=== PATIENT | female | born 1995 | race Caucasian/White ===

== ENCOUNTER 2016-12-10 10:45 | Inpatient (IN) | payer BC ==
[~2016-12-10] VITALS: Ht 162.6 cm; Wt 50.7 kg
[~2016-12-10 10:45] MED LIST: AMLO5TAB2 PO; DOXA2TAB9 PO; ERGO500017 PO
[2016-12-10] MEDS ORDERED: FOLI-17 PO (11:15)
[2016-12-10] MEDS ORDERED: CALC0.25 PO (11:15)
[2016-12-10] MEDS ORDERED: ASPIRIN 81 MG TABLET CHEW PO ONE (11:30)
[2016-12-10] MEDS ORDERED: ASPIRIN 81 MG TABLET CHEW ONE (11:43)
[2016-12-10 12:09] LABS: BLOOD UREA NITROGEN 81 mg/dL (7-18)
[2016-12-10 12:19] LABS: IS PT STATUS REG ER OR PRE ER? YES
[2016-12-10] MEDS ORDERED: SODIUM CHLORIDE FLUSH 10ML SYR IVF PRN (13:00)
[2016-12-10] MEDS ORDERED: LABETALOL 5MG/ML, 20ML IV PRN (13:00)
[2016-12-10] MEDS ORDERED: POLYETHYLENE GLYCOL 17 GM PACKET PO PRN (13:00)
[2016-12-10] MEDS ORDERED: SODIUM CHLORIDE FLUSH 10ML SYR IVF ONE (13:00)
[2016-12-10] MEDS ORDERED: ONDANSETRON 2MG/ML, 2ML IVP PRN (13:00)
[2016-12-10] MEDS ORDERED: HEPARIN 5,000 UNITS/ML, 1ML ONE (13:19)
[2016-12-10] MEDS: SODIUM CHLORIDE 0.9% 1,000 ML IV SCH ×2 (13:30→22:52)
[2016-12-10] MEDS: HEPARIN 5,000 UNITS/ML, 1ML SQ SCH ×2 (13:30→21:00)
[2016-12-10] MEDS ORDERED: ERGOCALCIFEROL 50,000 UNIT CAPSULE PO SCH (14:00)
[2016-12-10 14:18] VITALS: BP 138/96
[2016-12-10 14:22] VITALS: BP 138/96
[2016-12-10 19:59] VITALS: BP 137/79
[2016-12-11 02:00] VITALS: BP 146/89
[2016-12-11] MEDS: HEPARIN 5,000 UNITS/ML, 1ML SQ SCH ×3 (05:00→20:54)
[2016-12-11 05:51] LABS: BLOOD UREA NITROGEN 80 mg/dL (7-18)
[2016-12-11 08:00] VITALS: BP 129/81
[2016-12-11] MEDS: AMLODIPINE 5 MG TABLET PO SCH (08:30)
[2016-12-11] MEDS: FOLIC ACID 1 MG TABLET PO SCH (08:30)
[2016-12-11] MEDS: CALCITRIOL 0.25 MCG CAPSULE PO SCH (08:31)
[2016-12-11] MEDS ORDERED: LIDOCAINE 1%, 20ML ONE (10:53)
[2016-12-11] MEDS ORDERED: FENTANYL PF 100 MCG/2ML ONE (11:06)
[2016-12-11] MEDS ORDERED: MIDAZOLAM 1 MG/ML, 5ML ONE (11:06)
[2016-12-11] MEDS ORDERED: CEFAZOLIN PMX 1GM/50ML 50 ML ONE (11:15)
[2016-12-11 14:15] VITALS: BP 126/79
[2016-12-11] MEDS: ACETAMINOPHEN 325 MG TABLET PO PRN ×2 (14:18→18:40)
[2016-12-11] MEDS ORDERED: MORPHINE SULFATE 4 MG/ML, 1ML ONE ×2 (14:23→20:47)
[2016-12-11] MEDS ORDERED: MORPHINE SULFATE 4 MG/ML, 1ML IVPush ONE (14:30)
[2016-12-11 20:00] VITALS: BP 135/77
[2016-12-11] MEDS ORDERED: morphine SULFATE 10 MG/ML, 1ML IVPush ONE (21:00)
[2016-12-12 02:00] VITALS: BP 143/84
[2016-12-12 04:53] LABS: BLOOD UREA NITROGEN 53 mg/dL (7-18)
[2016-12-12] MEDS: HEPARIN 5,000 UNITS/ML, 1ML SQ SCH ×3 (05:06→21:57)
[2016-12-12 07:06] VITALS: BP 123/73
[2016-12-12] MEDS: FOLIC ACID 1 MG TABLET PO SCH (07:34)
[2016-12-12] MEDS: CALCITRIOL 0.25 MCG CAPSULE PO SCH (07:34)
[2016-12-12] MEDS: ACETAMINOPHEN 325 MG TABLET PO PRN ×2 (10:19→21:58)
[2016-12-12] MEDS: AMLODIPINE 5 MG TABLET PO SCH (11:54)
[2016-12-12 13:14] VITALS: BP 106/69
[2016-12-12] MEDS ORDERED: AMLO5TAB2 PO (13:49)
[2016-12-12] MEDS ORDERED: ERGO500017 PO (13:49)
[2016-12-12 20:00] VITALS: BP 138/83
[2016-12-13 02:00] VITALS: BP 125/83
[2016-12-13] MEDS: HEPARIN 5,000 UNITS/ML, 1ML SQ SCH ×2 (05:00→13:00)
[2016-12-13 06:56] VITALS: BP 124/82
[2016-12-13] MEDS: FOLIC ACID 1 MG TABLET PO SCH (09:00)
[2016-12-13] MEDS: AMLODIPINE 5 MG TABLET PO SCH (09:00)
[2016-12-13] MEDS: CALCITRIOL 0.25 MCG CAPSULE PO SCH (09:00)
== END 2016-12-13 15:30 | disposition home or self-care (01) | DRG 682 ==
LOC: ED 12:30 → EDIP 12:40 → 4WST 13:55 → DCLOUNGE 12-13 14:52
PROC: 02H633Z Insertion of Infusion Device into Right Atrium, Percutaneous Approach (ICD-10-PCS; 2016-12-11)
PROC: B2141ZZ Fluoroscopy of Right Heart using Low Osmolar Contrast (ICD-10-PCS; 2016-12-11)
PROC: 5A1D60Z (ICD-10-PCS; principal; 2016-12-12)
DX: I12.0 Hypertensive chronic kidney disease with stage 5 chronic kidney disease or end stage renal disease (principal); N18.6 End stage renal disease; E87.2 Acidosis; E87.70 Fluid overload, unspecified; D63.1 Anemia in chronic kidney disease; Z82.49 Family history of ischemic heart disease and other diseases of the circulatory system; E55.9 Vitamin D deficiency, unspecified; Z99.2 Dependence on renal dialysis
CPT/HCPCS: 36415; 36558; 71010; 76937; 77001; 80048; 82040; 82306; 82728; 83540; 83550; 83735; 83970; 84100; 84484; 84703; 85025; 85045; 85610; 86480; 86704; 86706; 86708; 86803; 87340; 93005; 99156; 99157; C1894; J0690; J1644; J2250; J3010; J3490; C1750; C1769; J1642; J2270; J7030

== ENCOUNTER 2017-01-11 11:52 | Emergency (ER) | payer BC ==
[~2017-01-11] VITALS: Ht 162.6 cm; Wt 50.3 kg
[~2017-01-11 11:52] MED LIST changes: +CALC0.25 PO; +FOLI-17 PO
[2017-01-11 11:59] VITALS: BP 147/95
== END 2017-01-11 13:29 | disposition left against medical advice (07) ==
LOC: ED 13:23
DX: T85.9XXA Unspecified complication of internal prosthetic device, implant and graft, initial encounter (principal); Z53.21 Procedure and treatment not carried out due to patient leaving prior to being seen by health care provider

== ENCOUNTER 2017-01-16 09:18 | Day surgery (SDC) | payer BC ==
[~2017-01-16] VITALS: Ht 162.6 cm; Wt 50.0 kg
[2017-01-16] MEDS ORDERED: PROPOFOL 10 MG/ML, 20ML ONE (10:43)
[2017-01-16] MEDS ORDERED: DEXAMETHASONE 4 MG/ML, 1ML ONE (10:43)
[2017-01-16] MEDS ORDERED: ONDANSETRON 2MG/ML, 2ML ONE (10:43)
[2017-01-16] MEDS ORDERED: CEFAZOLIN 1,000 MG ONE (10:43)
[2017-01-16 11:11] VITALS: BP 127/88
[2017-01-16] MEDS ORDERED: SODIUM CHLORIDE 0.9% 1,000 ML IV SCH (11:16)
[2017-01-16] MEDS ORDERED: CALC0.5C PO (11:18)
[2017-01-16] MEDS ORDERED: AMLO10TA2 PO (11:21)
[2017-01-16 11:34] LABS: HCG UR OBC PASS
[2017-01-16] MEDS ORDERED: FENTANYL PF 100 MCG/2ML ONE ×2 (16:25→17:36)
[2017-01-16] MEDS ORDERED: MIDAZOLAM 1 MG/ML, 2ML ONE (16:25)
[2017-01-16] MEDS ORDERED: BUPIVACAINE/PF-EPI 0.25% 1:200K ONE (16:50)
[2017-01-16] MEDS ORDERED: METOPROLOL 1 MG/ML, 5ML IV PRN (17:30)
[2017-01-16] MEDS ORDERED: ALBUTEROL SULFATE 2.5 MG/3 ML NPPB PRN (17:30)
[2017-01-16] MEDS ORDERED: OXYcodone 5 MG/5 ML ORAL.SOL UDC PO PRN (17:30)
[2017-01-16] MEDS ORDERED: ACETAMINOPHEN 325 MG TABLET PO PRN (17:30)
[2017-01-16] MEDS ORDERED: hydrALAzine 20 MG/ML, 1ML IV PRN (17:30)
[2017-01-16] MEDS ORDERED: HYDROmorphone 1 MG/ML, 1ML IV PRN (17:30)
[2017-01-16] MEDS ORDERED: OXYcodone 5 MG/5 ML ORAL.SOL UDC ONE (17:36)
[2017-01-16] MEDS: FENTANYL PF 100 MCG/2ML IV PRN ×2 (17:41→17:48)
== END 2017-01-16 19:15 | disposition home or self-care (01) ==
LOC: OUT 09:18
PROVIDERS: ATTEND Surgery Vascular Surgery
DX: I12.0 Hypertensive chronic kidney disease with stage 5 chronic kidney disease or end stage renal disease (principal); N18.6 End stage renal disease; E55.9 Vitamin D deficiency, unspecified; N25.81 Secondary hyperparathyroidism of renal origin; D63.1 Anemia in chronic kidney disease
CPT/HCPCS: 36415; 49324; 80047; 81025; C1751; J0690; J1100; J2250; J2405; J2704; J3010; J7030

== ENCOUNTER 2018-03-24 20:09 | Emergency (ER) | payer BC ==
[~2018-03-24] VITALS: Ht 160 cm; Wt 58.9 kg
[~2018-03-24 20:09] MED LIST changes: +AMLO10TA2 PO; +CALC0.5C9 PO
[2018-03-24 20:46] LABS: BASOPHILS # (AUTO) 0.22 x10^3/uL (0-0.1); BASOPHILS % (AUTO) 2 % (0-1); EOSINOPHILS # (AUTO) 0.23 x10^3/uL (0-0.4); EOSINOPHILS % (AUTO) 2 % (1-7); LYMPHOCYTES # (AUTO) 2.28 x10^3/uL (1-3.4); LYMPHOCYTES % (AUTO) 20 % (22-44); MD NO; MEAN CORPUSCULAR HEMOGLOBIN 33.1 pg (27.0-34.8); MEAN CORPUSCULAR HGB CONC 34.4 g/dL (32.4-35.8); MEAN CORPUSCULAR VOLUME 96.3 fL (80-100); MEAN PLATELET VOLUME 8.8 fL (7.4-10.4); MONOCYTES # (AUTO) 0.55 x10^3/uL (0.2-0.8); MONOCYTES % (AUTO) 5 % (2-9); NEUTROPHILS # (AUTO) 8.24 x10^3/uL (1.8-6.8); NEUTROPHILS % (AUTO) 72 % (42-75); PLATELET COUNT 199 x10^3/uL (130-400); RED BLOOD COUNT 2.75 x10^6/uL (3.82-5.3); RED CELL DISTRIBUTION WIDTH 14.1 % (9.6-15.2)
[2018-03-24 20:56] LABS: ALBUMIN 3.4 g/dL (3.4-5.0); ANION GAP 12 mmol/L (5-15); CALCIUM 8.7 mg/dL (8.5-10.1); CHLORIDE 106 mmol/L (98-107)
[2018-03-24] MEDS ORDERED: LISI-167 PO (21:35)
[2018-03-24] MEDS ORDERED: CALC0.25 PO (21:35)
[2018-03-24] MEDS ORDERED: CINA30TA2 PO (21:35)
[2018-03-24] MEDS ORDERED: SEVE800T8 PO (21:36)
[2018-03-24 22:00] VITALS: BP 131/91
== END 2018-03-24 22:49 | disposition home or self-care (01) ==
LOC: ED 22:43
DX: M25.512 Pain in left shoulder (principal); R07.89 Other chest pain; I10 Essential (primary) hypertension
CPT/HCPCS: 36415; 71046; 80048; 82040; 85025; 93005; 99285

== ENCOUNTER 2018-09-07 14:33 | Emergency (ER) | payer BC ==
[~2018-09-07] VITALS: Ht 162.6 cm; Wt 62.4 kg
[~2018-09-07 14:33] MED LIST changes: +AMLO-150 PO; -AMLO10TA2 PO; +AMLO10TA8 PO; -AMLO5TAB2 PO; +CINA30TA2 PO; +LISI-167 PO; +SEVE800T8 PO
[2018-09-07 14:58] LABS: BASOPHILS # (AUTO) 0.19 x10^3/uL (0-0.1); BASOPHILS % (AUTO) 2 % (0-1); EOSINOPHILS # (AUTO) 0.25 x10^3/uL (0-0.4); EOSINOPHILS % (AUTO) 2 % (1-7); LYMPHOCYTES # (AUTO) 2.34 x10^3/uL (1-3.4); LYMPHOCYTES % (AUTO) 23 % (22-44); MD NO; MEAN CORPUSCULAR HGB CONC 32.8 g/dL (32.4-35.8); MEAN CORPUSCULAR VOLUME 94.5 fL (80-100); MEAN PLATELET VOLUME 8.4 fL (7.4-10.4); MONOCYTES # (AUTO) 0.59 x10^3/uL (0.2-0.8); MONOCYTES % (AUTO) 6 % (2-9); NEUTROPHILS # (AUTO) 6.96 x10^3/uL (1.8-6.8); NEUTROPHILS % (AUTO) 67 % (42-75); PLATELET COUNT 256 x10^3/uL (130-400); RED BLOOD COUNT 3.47 x10^6/uL (3.82-5.3); RED CELL DISTRIBUTION WIDTH 14.7 % (9.6-15.2)
[2018-09-07 15:07] LABS: ALBUMIN 3.6 g/dL (3.4-5.0); ANION GAP 14 mmol/L (5-15); CHLORIDE 104 mmol/L (98-107)
[2018-09-07 15:11] LABS: ALKALINE PHOSPHATASE 101 U/L (45-117); BILIRUBIN,TOTAL 0.3 mg/dL (0.2-1.0); TOTAL PROTEIN 7.3 g/dL (6.4-8.2)
[2018-09-07 15:14] LABS: ALANINE AMINOTRANSFERASE 9 U/L (12-78)
--- NOTE | 2018-09-07 15:44 | NUR ---
PT OOB AMBULATE TO BATHROOM, UPRIGHT STEADY GAIT.
--- NOTE | 2018-09-07 15:52 | NUR ---
PT RTD TO ROOM FROM BATHROOM, C/O INCREASED DIZZINESS. PT TO [facility] W/O INCIDENT, VSS NOTED.
[2018-09-07 16:06] LABS: MICROSCOPIC AUTO
[2018-09-07 16:08] LABS: CULTURE INDICATED? YES
--- NOTE | 2018-09-07 16:32 | NUR ---
LUNCH RN: PROVIDER TO BEDSIDE.
[2018-09-07 17:26] VITALS: BP 134/80
--- NOTE | 2018-09-07 17:28 | NUR ---
Patient/Caregiver given discharge instructions and they have confirmed that they understand the instructions. Patient ambulatory with steady gait.
== END 2018-09-07 17:29 | disposition home or self-care (01) ==
LOC: ED 17:11
DX: N30.00 Acute cystitis without hematuria (principal); I12.9 Hypertensive chronic kidney disease with stage 1 through stage 4 chronic kidney disease, or unspecified chronic kidney disease; N18.9 Chronic kidney disease, unspecified
CPT/HCPCS: 36415; 71045; 80053; 81001; 83690; 84703; 85025; 87086; 99284

== ENCOUNTER → 2018-09-30 | Outpatient (CLI) | payer BC ==
[~2018-09-30] MED LIST changes: +ASCO1500 PO; +IRON18TA PO
[2018-09-30 13:51] LABS: BASOPHILS # (AUTO) 0.04 x10^3/uL (0-0.1); BASOPHILS % (AUTO) 1 % (0-1); EOSINOPHILS # (AUTO) 0.29 x10^3/uL (0-0.4); EOSINOPHILS % (AUTO) 4 % (1-7); LYMPHOCYTES % (AUTO) 23 % (22-44); MD NO; MEAN CORPUSCULAR HEMOGLOBIN 31.3 pg (27.0-34.8); MEAN CORPUSCULAR HGB CONC 33.5 g/dL (32.4-35.8); MEAN CORPUSCULAR VOLUME 93.5 fL (80-100); MEAN PLATELET VOLUME 8.8 fL (7.4-10.4); MONOCYTES # (AUTO) 0.44 x10^3/uL (0.2-0.8); MONOCYTES % (AUTO) 6 % (2-9); NEUTROPHILS # (AUTO) 4.63 x10^3/uL (1.8-6.8); NEUTROPHILS % (AUTO) 66 % (42-75); PLATELET COUNT 182 x10^3/uL (130-400); RED BLOOD COUNT 3.26 x10^6/uL (3.82-5.3); RED CELL DISTRIBUTION WIDTH 15.1 % (9.6-15.2)
[2018-09-30 14:05] LABS: ALANINE AMINOTRANSFERASE 12 U/L (12-78); ALBUMIN 3.6 g/dL (3.4-5.0); CALCIUM 9.1 mg/dL (8.5-10.1)
[2018-09-30 14:07] LABS: ALKALINE PHOSPHATASE 88 U/L (45-117); BILIRUBIN,TOTAL 0.5 mg/dL (0.2-1.0); TOTAL PROTEIN 6.9 g/dL (6.4-8.2)
[2018-09-30 14:25] LABS: ANION GAP 11 mmol/L (5-15); CHLORIDE 102 mmol/L (98-107)
== END | disposition home or self-care (01) ==
LOC: STAR 12:38
PROVIDERS: ATTEND Surgery
DX: Z01.818 Encounter for other preprocedural examination (principal)
CPT/HCPCS: 36415; 80053; 85025; 93005

== ENCOUNTER 2018-10-05 08:02 | Inpatient (IN) | payer BC, MEDICARE ==
[~2018-10-05] VITALS: Ht 160 cm; Wt 59.5 kg
[2018-10-05] MEDS ORDERED: SODIUM CHLORIDE 0.9% 1,000 ML IV SCH (08:25)
[2018-10-05] MEDS ORDERED: SCOPOLAMINE PATCH, 1.5MG PATCH.TD72 TD ONE (08:30)
[2018-10-05] MEDS ORDERED: ONDANSETRON ODT 8 MG PO ONE (08:30)
[2018-10-05] MEDS ORDERED: ACETAMINOPHEN 500 MG TABLET PO ONE (08:30)
[2018-10-05] MEDS ORDERED: GABAPENTIN 300 MG CAPSULE PO ONE (08:30)
[2018-10-05 08:46] VITALS: BP 126/87
[2018-10-05] MEDS ORDERED: MIDAZOLAM 1 MG/ML, 2ML ONE (09:14)
[2018-10-05] MEDS ORDERED: FENTANYL PF 250 MCG/5ML ONE (09:14)
[2018-10-05 09:18] LABS: HCG UR SG 1.014 (1.003-1.030)
[2018-10-05] MEDS ORDERED: CEFAZOLIN 1,000 MG ONE ×2 (10:23→11:09)
[2018-10-05] MEDS ORDERED: PROPOFOL 10 MG/ML, 20ML ONE (10:23)
[2018-10-05] MEDS ORDERED: LABETALOL 5MG/ML, 20ML IV PRN (10:30)
[2018-10-05] MEDS ORDERED: ONDANSETRON 2MG/ML, 2ML IV PRN ×2 (10:30→13:00)
[2018-10-05] MEDS ORDERED: PROMETHAZINE 25 MG/ML, 1ML IV PRN (10:30)
[2018-10-05] MEDS ORDERED: MIDAZOLAM 1 MG/ML, 2ML IV PRN (10:30)
[2018-10-05] MEDS ORDERED: ALBUTEROL/IPRATROPIUM 2.5MG/0.5MG, 3 ML NPPB PRN (10:30)
[2018-10-05] MEDS ORDERED: MEPERIDINE/PF 25MG/0.5ML IVPush PRN (10:30)
[2018-10-05] MEDS ORDERED: SUCCINYLCHOLINE 20 MG/ML, 10ML ONE (11:09)
[2018-10-05] MEDS ORDERED: DEXAMETHASONE 4 MG/ML, 1ML ONE (11:09)
[2018-10-05] MEDS ORDERED: ROCURONIUM 10MG/ML,5ML ONE (11:09)
[2018-10-05] MEDS ORDERED: FENTANYL PF 100 MCG/2ML ONE (11:14)
[2018-10-05] MEDS: FENTANYL PF 100 MCG/2ML IV PRN ×3 (11:16→11:37)
[2018-10-05 11:32] LABS: 10MIN %DROP IOPTH 79 %; 5MIN %DROP IOPTH 76 %; IOPTH BASELINE 2559 pg/mL
[2018-10-05] MEDS ORDERED: OXYcodone 5 MG/5 ML ORAL.SOL UDC ONE ×2 (11:38→11:56)
[2018-10-05] MEDS: OXYcodone 5 MG/5 ML ORAL.SOL UDC PO PRN ×2 (11:39→11:56)
[2018-10-05] MEDS ORDERED: HYDROmorphone 1 MG/ML, 1ML INJ ONE (11:45)
[2018-10-05] MEDS: HYDROmorphone 2 MG/ML, 1ML IVPush PRN ×2 (11:47→12:03)
[2018-10-05] MEDS ORDERED: morphine SULFATE 10 MG/ML, 1ML IV PRN (13:00)
[2018-10-05] MEDS ORDERED: HYDROcodone/APAP 5/325 TABLET PO PRN (13:00)
[2018-10-05 16:18] VITALS: BP 119/84
[2018-10-05] MEDS ORDERED: CALCIUM CARBONATE 500 MG TAB.CHEW PO SCH (17:00)
[2018-10-05 17:59] LABS: ALBUMIN 3.3 g/dL (3.4-5.0); CALCIUM 7.9 mg/dL (8.5-10.1)
[2018-10-05 20:30] VITALS: BP 124/73
[2018-10-05] MEDS ORDERED: CALCITRIOL 0.5 MCG CAPSULE PO ONE (22:00)
[2018-10-05] MEDS ORDERED: CALCIUM CARBONATE 500 MG TAB.CHEW PO/NG ONE (22:00)
[2018-10-06 00:25] VITALS: BP 104/64
[2018-10-06 00:58] LABS: CALCIUM 7.4 mg/dL (8.5-10.1)
[2018-10-06] MEDS: CALCIUM CARBONATE 500 MG TAB.CHEW PO SCH ×3 (02:21→11:08)
[2018-10-06] MEDS ORDERED: CALCIUM CARBONATE 500 MG TAB.CHEW PO SCH (04:00)
[2018-10-06 04:18] VITALS: BP 104/72
[2018-10-06 06:27] LABS: CALCIUM 7.5 mg/dL (8.5-10.1)
[2018-10-06] MEDS ORDERED: AMLODIPINE 5 MG TABLET PO SCH (09:00)
[2018-10-06] MEDS ORDERED: ASCORBIC ACID 500 MG TABLET PO SCH (09:00)
[2018-10-06] MEDS ORDERED: FERROUS SULFATE 325 MG TABLET PO SCH (09:00)
[2018-10-06] MEDS ORDERED: LISINOPRIL 20 MG TABLET PO SCH (09:00)
[2018-10-06] MEDS ORDERED: SEVELAMER CARBONATE 800MG TAB PO SCH (09:00)
[2018-10-06] MEDS ORDERED: HYDR-3240 PO (09:43)
[2018-10-06] MEDS ORDERED: CALC1POW PO (09:45)
[2018-10-06] MEDS ORDERED: CALC0.25 PO (09:45)
[2018-10-06 11:00] VITALS: BP 97/62
[2018-10-06] MEDS: CALCITRIOL 0.5 MCG CAPSULE PO SCH ×2 (11:08→11:18)
[2018-10-06] MEDS ORDERED: CALCIUM CARBONATE 500 MG TAB.CHEW PO PRN (11:30)
[2018-10-06] MEDS ORDERED: CALCITRIOL 0.5 MCG CAPSULE PO SCH (11:30)
== END 2018-10-06 11:42 | disposition home or self-care (01) | DRG 625 ==
LOC: OUT 08:02 → EDSTATUS 11:00 → OUT 12:37 → 4NOR 12:37 → 4EST 12:46 → UNDOADMIN 23:41 → 4NOR 23:41 → OUT 23:41 → 4NOR 23:41 → DCLOUNGE 10-06 11:28 → 4NOR 10-06 11:28 → UNDODISIN 10-06 11:40 → OUT 10-06 11:42
PROVIDERS: ADMIT Surgery; ATTEND Surgery
PROC: 0GBL0ZZ Excision of Right Superior Parathyroid Gland, Open Approach (ICD-10-PCS; 2018-10-05)
PROC: 0GBM0ZZ Excision of Left Superior Parathyroid Gland, Open Approach (ICD-10-PCS; 2018-10-05)
PROC: 0GBN0ZZ Excision of Right Inferior Parathyroid Gland, Open Approach (ICD-10-PCS; 2018-10-05)
PROC: 4A11X4G Monitoring of Peripheral Nervous Electrical Activity, Intraoperative, External Approach (ICD-10-PCS; 2018-10-05)
PROC: 03HY32Z Insertion of Monitoring Device into Upper Artery, Percutaneous Approach (ICD-10-PCS; 2018-10-05)
PROC: 0GBP0ZZ Excision of Left Inferior Parathyroid Gland, Open Approach (ICD-10-PCS; principal; 2018-10-05 10:30)
DX: E21.0 Primary hyperparathyroidism (principal); N18.6 End stage renal disease; N25.81 Secondary hyperparathyroidism of renal origin; I12.0 Hypertensive chronic kidney disease with stage 5 chronic kidney disease or end stage renal disease; D63.1 Anemia in chronic kidney disease; N25.0 Renal osteodystrophy; J44.9 Chronic obstructive pulmonary disease, unspecified; Z83.3 Family history of diabetes mellitus; Z88.6 Allergy status to analgesic agent
CPT/HCPCS: 36415; 80047; 81025; 82040; 82310; 83970; 88305; G0378; J0690; J1100; J1170; J2250; J2704; J3010; Q0162; C1760; J0330; J7030

== ENCOUNTER 2018-10-12 20:06 | Inpatient (IN) | payer BC, MEDICARE ==
[~2018-10-12] VITALS: Ht 160 cm; Wt 60.4 kg
[~2018-10-12 20:06] MED LIST changes: +CALC1POW PO; +HYDR-3240 PO
[2018-10-12] MEDS ORDERED: SODIUM CHLORIDE FLUSH 10ML SYR IVF ONE (20:30)
--- NOTE | 2018-10-12 20:32 | NUR ---
PT PRESENTING TO ER FOR LOW CALCIUM LEVELS PER TOLD THEY WERE 6.7. PT STATES FEELING SLOW, WEAK ALL OVER AND SLIGHTLY TWITCHY WITH JAW NUMBNESS. CONNECTED TO ALL MONITORING, TACHY HR. MD TO BEDSIDE FOR ASSESSMENT. ORDERS RECEIVED. IV STARTED, LABS DRAWN AND TAKEN TO LAB. FAMILY AT BEDSIDE. CALL LIGHT WITHIN REACH. AWAITING RESULTS AT THIS TIME. ALL NEEDS MET PER PT.
[2018-10-12 20:52] LABS: BASOPHILS # (AUTO) 0.02 x10^3/uL (0-0.1); BASOPHILS % (AUTO) 0 % (0-1); EOSINOPHILS # (AUTO) 0.34 x10^3/uL (0-0.4); EOSINOPHILS % (AUTO) 5 % (1-7); LYMPHOCYTES # (AUTO) 1.54 x10^3/uL (1-3.4); LYMPHOCYTES % (AUTO) 22 % (22-44); MD NO; MEAN CORPUSCULAR HEMOGLOBIN 31.3 pg (27.0-34.8); MEAN CORPUSCULAR HGB CONC 33.8 g/dL (32.4-35.8); MEAN CORPUSCULAR VOLUME 92.6 fL (80-100); MEAN PLATELET VOLUME 8.4 fL (7.4-10.4); MONOCYTES # (AUTO) 0.63 x10^3/uL (0.2-0.8); MONOCYTES % (AUTO) 9 % (2-9); NEUTROPHILS # (AUTO) 4.37 x10^3/uL (1.8-6.8); NEUTROPHILS % (AUTO) 63 % (42-75); PLATELET COUNT 235 x10^3/uL (130-400); RED BLOOD COUNT 2.82 x10^6/uL (3.82-5.3); RED CELL DISTRIBUTION WIDTH 14.9 % (9.6-15.2)
[2018-10-12 20:56] LABS: ALBUMIN 3.2 g/dL (3.4-5.0); ANION GAP 14 mmol/L (5-15); CHLORIDE 102 mmol/L (98-107)
[2018-10-12 20:58] LABS: ALKALINE PHOSPHATASE 181 U/L (45-117); BILIRUBIN,TOTAL 0.3 mg/dL (0.2-1.0); TOTAL PROTEIN 6.8 g/dL (6.4-8.2)
[2018-10-12 20:59] LABS: ALANINE AMINOTRANSFERASE < 6 U/L (12-78)
[2018-10-12 21:00] LABS: CALCIUM 5.3 mg/dL (8.5-10.1)
--- NOTE | 2018-10-12 21:05 | NUR ---
CRIT CALCIUM RECEIVED FROM MD STEPHANIE UPDATED, VERBAL ORDERS RECEIVED FOR MEDS.
[2018-10-12] MEDS ORDERED: CALCIUM GLUCONATE 9.2 MEQ in SODIUM CHLORIDE 0.9% 100 ML IV ONE (21:30)
--- NOTE | 2018-10-12 21:30 | NUR ---
DRIP RECEIVED FROM PHARM, STARTED. PT TO BE ADMITTED TO [facility]. FAMILY TO GO HOME TO GET PT PERITONEAL DIALYSIS MACHINE. VSS. BLANKET PROVIDED FOR COMFORT. AWAITING ROOM ASSIGNMENT ON FLOOR. CALL LIGHT WITHIN REACH
--- NOTE | 2018-10-12 22:02 | NUR ---
REPORT GIVEN TO SACHA DELACRUZ, PT READY FOR TRANSPORT TO FLOOR.
[2018-10-12 22:24] VITALS: BP 126/88
[2018-10-12] MEDS ORDERED: LABETALOL 5 MG/ML SYRINGE IVPush PRN (22:30)
[2018-10-12] MEDS ORDERED: POLYETHYLENE GLYCOL 17 GM PACKET PO PRN (22:30)
[2018-10-12] MEDS ORDERED: morphine SULFATE 10 MG/ML, 1ML IVPush PRN (22:30)
[2018-10-12] MEDS ORDERED: ONDANSETRON ODT 4 MG PO PRN (22:30)
[2018-10-12] MEDS ORDERED: GABAPENTIN 300 MG CAPSULE PO PRN (22:30)
[2018-10-12] MEDS ORDERED: BISACODYL 10 MG SUPP PR PRN (22:30)
[2018-10-12] MEDS ORDERED: DOCUSATE 100 MG CAPSULE PO PRN (22:30)
[2018-10-12] MEDS ORDERED: ACETAMINOPHEN 325 MG TABLET PO PRN (22:30)
[2018-10-12] MEDS ORDERED: PROMETHAZINE 25 MG/ML, 1ML IM PRN (22:30)
[2018-10-12] MEDS ORDERED: OXYcodone IR 5MG TABLET PO PRN (22:30)
[2018-10-12] MEDS ORDERED: ONDANSETRON 2MG/ML, 2ML IVPush PRN (22:30)
[2018-10-12] MEDS ORDERED: CALCIUM GLUCONATE IV SCH (23:00)
[2018-10-12] MEDS ORDERED: ERGOCALCIFEROL 50,000 UNIT CAPSULE PO SCH (23:00)
[2018-10-12] MEDS ORDERED: CALCIUM CARBONATE PO SCH (23:00)
[2018-10-12] MEDS ORDERED: CALCITRIOL PO SCH (23:00)
[2018-10-12] MEDS ORDERED: DEXTROSE 5% IV SCH (23:00)
[2018-10-12] MEDS: HEPARIN 5,000 UNITS/ML, 1ML SQ SCH (23:19)
[2018-10-12 23:36] LABS: FREE T4 (FREE THYROXINE) 1.89 ng/dL (0.76-1.46); THYROID STIMULATING HORMONE 0.022 mIU/L (0.358-3.740)
[2018-10-13] MEDS: CALCIUM CARBONATE 500 MG TAB.CHEW PO SCH ×6 (00:11→20:19)
[2018-10-13 01:06] VITALS: BP 130/78
[2018-10-13 05:35] LABS: BASOPHILS # (AUTO) 0.04 x10^3/uL (0-0.1); BASOPHILS % (AUTO) 1 % (0-1); EOSINOPHILS # (AUTO) 0.33 x10^3/uL (0-0.4); EOSINOPHILS % (AUTO) 6 % (1-7); LYMPHOCYTES # (AUTO) 1.86 x10^3/uL (1-3.4); LYMPHOCYTES % (AUTO) 33 % (22-44); MD NO; MEAN CORPUSCULAR HEMOGLOBIN 31.5 pg (27.0-34.8); MEAN CORPUSCULAR HGB CONC 34.1 g/dL (32.4-35.8); MEAN CORPUSCULAR VOLUME 92.4 fL (80-100); MEAN PLATELET VOLUME 8.1 fL (7.4-10.4); MONOCYTES # (AUTO) 0.58 x10^3/uL (0.2-0.8); MONOCYTES % (AUTO) 10 % (2-9); NEUTROPHILS % (AUTO) 51 % (42-75); PLATELET COUNT 200 x10^3/uL (130-400); RED BLOOD COUNT 2.63 x10^6/uL (3.82-5.3); RED CELL DISTRIBUTION WIDTH 14.9 % (9.6-15.2)
[2018-10-13 06:04] LABS: CHLORIDE 101 mmol/L (98-107)
[2018-10-13 06:13] LABS: ALANINE AMINOTRANSFERASE 9 U/L (12-78); ALBUMIN 2.9 g/dL (3.4-5.0); ALKALINE PHOSPHATASE 166 U/L (45-117); ANION GAP 14 mmol/L (5-15); BILIRUBIN,TOTAL 0.4 mg/dL (0.2-1.0); CALCIUM 7.2 mg/dL (8.5-10.1); CHOL/HDL RATIO 3.5; CHOLESTEROL, TOTAL 111 mg/dL (140-239); HDL CHOL % 29 % (28-40); HDL CHOLESTEROL (DIRECT) 32 mg/dL (40-60); LDL CHOLESTEROL,CALCULATED 59 mg/dL (54-169); LDL/HDL RATIO 1.8 (0.5-3.0); TOTAL PROTEIN 6.4 g/dL (6.4-8.2); TRIGLYCERIDES 100 mg/dL (50-200); VLDL CHOLESTEROL 20 mg/dL (0-25)
[2018-10-13] MEDS: HEPARIN 5,000 UNITS/ML, 1ML SQ SCH ×3 (06:42→15:41)
[2018-10-13 07:48] VITALS: BP 117/78
[2018-10-13] MEDS: LISINOPRIL 10 MG TABLET PO SCH (08:27)
[2018-10-13] MEDS: ASCORBIC ACID 500 MG TABLET PO SCH (08:27)
[2018-10-13] MEDS: CALCIUM ACETATE 667 MG CAPSULE PO SCH ×3 (08:27→15:34)
[2018-10-13] MEDS: AMLODIPINE 10 MG TAB PO SCH (08:28)
[2018-10-13] MEDS: FERROUS SULFATE 325 MG TABLET PO SCH (08:28)
[2018-10-13] MEDS: CALCITRIOL 0.5 MCG CAPSULE PO SCH ×2 (08:28→20:19)
[2018-10-13] MEDS ORDERED: SEVELAMER CARBONATE 800MG TAB PO SCH (09:00)
[2018-10-13] MEDS ORDERED: ARANESP 100 MCG/ML **ESRD SQ SCH (10:30)
[2018-10-13 14:21] VITALS: BP 120/74
[2018-10-13 19:41] VITALS: BP 102/62
[2018-10-13] MEDS: GENTAMICIN CRM 0.1%, 30GM TP SCH (20:20)
[2018-10-14] MEDS: CALCIUM CARBONATE 500 MG TAB.CHEW PO SCH ×6 (00:02→21:00)
[2018-10-14] MEDS: HEPARIN 5,000 UNITS/ML, 1ML SQ SCH ×3 (00:02→16:01)
[2018-10-14 02:30] VITALS: BP 98/66
[2018-10-14 07:58] VITALS: BP 95/63
[2018-10-14] MEDS: FERROUS SULFATE 325 MG TABLET PO SCH (08:19)
[2018-10-14] MEDS: LISINOPRIL 10 MG TABLET PO SCH (08:20)
[2018-10-14] MEDS: CALCIUM ACETATE 667 MG CAPSULE PO SCH ×4 (08:20→16:34)
[2018-10-14] MEDS: CALCITRIOL 0.5 MCG CAPSULE PO SCH ×2 (08:20→21:00)
[2018-10-14] MEDS: ASCORBIC ACID 500 MG TABLET PO SCH (08:20)
[2018-10-14] MEDS: AMLODIPINE 10 MG TAB PO SCH (08:21)
[2018-10-14] MEDS: DEXTROSE 5% IV SCH (10:00)
[2018-10-14] MEDS: CALCIUM GLUCONATE IV SCH (10:00)
[2018-10-14 10:15] LABS: BASOPHILS % (AUTO) 2 % (0-1); EOSINOPHILS # (AUTO) 0.22 x10^3/uL (0-0.4); EOSINOPHILS % (AUTO) 4 % (1-7); LYMPHOCYTES # (AUTO) 1.28 x10^3/uL (1-3.4); LYMPHOCYTES % (AUTO) 23 % (22-44); MD NO; MEAN CORPUSCULAR HEMOGLOBIN 30.7 pg (27.0-34.8); MEAN CORPUSCULAR HGB CONC 33.1 g/dL (32.4-35.8); MEAN CORPUSCULAR VOLUME 92.5 fL (80-100); MEAN PLATELET VOLUME 8.2 fL (7.4-10.4); MONOCYTES # (AUTO) 0.39 x10^3/uL (0.2-0.8); MONOCYTES % (AUTO) 7 % (2-9); NEUTROPHILS # (AUTO) 3.69 x10^3/uL (1.8-6.8); NEUTROPHILS % (AUTO) 65 % (42-75); PLATELET COUNT 229 x10^3/uL (130-400); RED CELL DISTRIBUTION WIDTH 14.9 % (9.6-15.2)
[2018-10-14 10:24] LABS: ANION GAP 11 mmol/L (5-15); CHLORIDE 96 mmol/L (98-107)
[2018-10-14 13:21] VITALS: BP 98/68
[2018-10-14 20:29] VITALS: BP 130/81
[2018-10-14] MEDS: GENTAMICIN CRM 0.1%, 30GM TP SCH (21:00)
[2018-10-15] MEDS: HEPARIN 5,000 UNITS/ML, 1ML SQ SCH ×3 (00:19→16:00)
[2018-10-15] MEDS: CALCIUM CARBONATE 500 MG TAB.CHEW PO SCH ×5 (00:19→16:08)
[2018-10-15 04:21] VITALS: BP 117/69
[2018-10-15 07:00] VITALS: BP 106/70
[2018-10-15] MEDS: CALCIUM GLUCONATE IV SCH (08:06)
[2018-10-15] MEDS: DEXTROSE 5% IV SCH (08:06)
[2018-10-15] MEDS: ASCORBIC ACID 500 MG TABLET PO SCH (08:07)
[2018-10-15] MEDS: FERROUS SULFATE 325 MG TABLET PO SCH (08:07)
[2018-10-15] MEDS: CALCIUM ACETATE 667 MG CAPSULE PO SCH ×2 (08:07→12:16)
[2018-10-15] MEDS: CALCITRIOL 0.5 MCG CAPSULE PO SCH (08:07)
[2018-10-15] MEDS: AMLODIPINE 10 MG TAB PO SCH (08:08)
[2018-10-15] MEDS: LISINOPRIL 10 MG TABLET PO SCH (08:08)
[2018-10-15] MEDS ORDERED: CALCIUM GLUCONATE IV SCH (09:00)
[2018-10-15] MEDS ORDERED: DEXTROSE 5% IV SCH (09:00)
[2018-10-15 14:36] VITALS: BP 127/69
[2018-10-15] MEDS ORDERED: GENT15CR6 TP (15:55)
[2018-10-15] MEDS ORDERED: CALC667C PO (15:55)
== END 2018-10-15 16:44 | disposition home or self-care (01) | DRG 640 ==
LOC: ED 20:43 → EDIP 21:33 → 4EST 22:16
PROVIDERS: ADMIT Internal Medicine; ATTEND Internal Medicine
PROC: 3E1M39Z Irrigation of Peritoneal Cavity using Dialysate, Percutaneous Approach (ICD-10-PCS; principal; 2018-10-12)
PROC: 3E1M39Z Irrigation of Peritoneal Cavity using Dialysate, Percutaneous Approach (ICD-10-PCS; 2018-10-13)
PROC: 3E1M39Z Irrigation of Peritoneal Cavity using Dialysate, Percutaneous Approach (ICD-10-PCS; 2018-10-14)
DX: E83.51 Hypocalcemia (principal); N18.6 End stage renal disease; I12.0 Hypertensive chronic kidney disease with stage 5 chronic kidney disease or end stage renal disease; E44.1 Mild protein-calorie malnutrition; N25.81 Secondary hyperparathyroidism of renal origin; D63.1 Anemia in chronic kidney disease; E83.81 Hungry bone syndrome; N25.0 Renal osteodystrophy; Z83.3 Family history of diabetes mellitus; Z99.2 Dependence on renal dialysis; Z88.8 Allergy status to other drugs, medicaments and biological substances; Z79.899 Other long term (current) drug therapy; Z68.20 Body mass index [BMI] 20.0-20.9, adult
CPT/HCPCS: 36415; 80048; 80053; 80061; 82330; 83735; 84100; 84439; 84443; 85025; 93005; 96374; 99285; G0378; J0610; J0882; J1644; J7070

== ENCOUNTER → 2019-07-12 | Outpatient (CLI) | payer BC ==
[~2019-07-12] MED LIST changes: +CALC667C PO; +GENT15CR6 TP
== END | disposition home or self-care (01) ==
LOC: CFH 08:37
PROVIDERS: ATTEND Nurse Practitioner
DX: N26.1 Atrophy of kidney (terminal) (principal); R10.9 Unspecified abdominal pain; N18.6 End stage renal disease; M54.9 Dorsalgia, unspecified
CPT/HCPCS: 74176

== ENCOUNTER 2019-07-14 10:50 | Emergency (ER) | payer BC ==
[~2019-07-14] VITALS: Ht 162.6 cm; Wt 60.9 kg
--- NOTE | 2019-07-14 11:16 | NUR ---
PT STATES WAS SENT OVER HERE FROM HER MD OFFICE AFTER HAVING A CT SCAN OF HER ABDOMEN, HE MD TOLD HER THAT THE RESULTS WERE "ABNORMAL". PT DOES HAVE C/O ABD PAIN RLQ, AND NAUSEA. -V/D
--- NOTE | 2019-07-14 11:34 | NUR ---
TASK RN: PT RESTING ON GURNEY. NADN. DOMINGUEZ.
[2019-07-14 11:49] LABS: CULTURE INDICATED? YES; MICROSCOPIC INDICATED
[2019-07-14 11:56] LABS: BASOPHILS # (AUTO) 0.04 x10^3/uL (0-0.1); BASOPHILS % (AUTO) 1 % (0-1); EOSINOPHILS # (AUTO) 0.33 x10^3/uL (0-0.4); EOSINOPHILS % (AUTO) 4 % (1-7); LYMPHOCYTES # (AUTO) 1.63 x10^3/uL (1-3.4); LYMPHOCYTES % (AUTO) 20 % (22-44); MD NO; MEAN CORPUSCULAR HEMOGLOBIN 32.2 pg (27.0-34.8); MEAN CORPUSCULAR HGB CONC 32.3 g/dL (32.4-35.8); MEAN CORPUSCULAR VOLUME 99.9 fL (80-100); MEAN PLATELET VOLUME 8.1 fL (7.4-10.4); MONOCYTES # (AUTO) 0.38 x10^3/uL (0.2-0.8); MONOCYTES % (AUTO) 5 % (2-9); NEUTROPHILS # (AUTO) 5.93 x10^3/uL (1.8-6.8); NEUTROPHILS % (AUTO) 71 % (42-75); PLATELET COUNT 291 x10^3/uL (130-400); RED BLOOD COUNT 3.13 x10^6/uL (3.82-5.3); RED CELL DISTRIBUTION WIDTH 17.5 % (9.6-15.2)
--- NOTE | 2019-07-14 11:59 | NUR ---
Note maria del carmen in EDM - 07/14/19 at 1159 by BNICHOLS TASK RN: PT REPOSITIONED FOR COMFORT. RESTING ON GURNEY. NADN. ALL QUESTIONS ANSWERED. PT AND FAMILY AWARE OF POC.
[2019-07-14 12:08] LABS: ALBUMIN 3.7 g/dL (3.4-5.0); ANION GAP 14 mmol/L (5-15); CALCIUM 8.5 mg/dL (8.5-10.1); CHLORIDE 99 mmol/L (98-107)
[2019-07-14 12:12] LABS: ALANINE AMINOTRANSFERASE 17 U/L (12-78); ALKALINE PHOSPHATASE 48 U/L (45-117); BILIRUBIN,TOTAL 0.4 mg/dL (0.2-1.0); C-REACTIVE PROTEIN, QUANT 0.31 mg/dL (0.02-0.49); TOTAL PROTEIN 7.4 g/dL (6.4-8.2)
[2019-07-14 12:36] VITALS: BP 132/90
--- NOTE | 2019-07-14 12:43 | NUR ---
PT RESTING ON TESHA, NAD NOTED, VSS. PT PLACED FOR RECHECK
[2019-07-14] MEDS ORDERED: CEFTRIAXONE 1,000 MG IM ONE (13:30)
[2019-07-14] MEDS ORDERED: CEFTRIAXONE 1,000 MG ONE (13:41)
[2019-07-14] MEDS ORDERED: LIDOCAINE-MPF 1%, 2ML ONE (13:41)
== END 2019-07-14 13:54 | disposition home or self-care (01) ==
LOC: ED 13:53
DX: I12.0 Hypertensive chronic kidney disease with stage 5 chronic kidney disease or end stage renal disease (principal); N30.00 Acute cystitis without hematuria; N18.6 End stage renal disease; Z99.2 Dependence on renal dialysis; Z90.89 Acquired absence of other organs
CPT/HCPCS: 36415; 80053; 81001; 83605; 85025; 86140; 87040; 87086; 96372; 99283; J0696

== ENCOUNTER 2019-11-02 15:51 | Emergency (ER) | payer BC ==
[~2019-11-02] VITALS: Ht 160 cm; Wt 61.4 kg
[2019-11-02 16:32] VITALS: BP 140/99
--- NOTE | 2019-11-02 19:19 | NUR ---
DEVELOPMENT ENG: CALLED FOR PT. PT NOT IN LOBBY.
--- NOTE | 2019-11-02 19:54 | NUR ---
FURNACE TENDER: CALLED FOR PT. PT NOT IN LOBBY OR RESTROOMS.
--- NOTE | 2019-11-02 20:05 | NUR ---
DEVOPS DEVELOPER: CALLED FOR PT. PT NOT IN LOBBY.
== END 2019-11-02 20:09 | disposition left against medical advice (07) ==
LOC: ED 20:00
DX: M79.601 Pain in right arm (principal); Z53.21 Procedure and treatment not carried out due to patient leaving prior to being seen by health care provider

== ENCOUNTER 2019-11-02 21:14 | Emergency (ER) | payer BC ==
[~2019-11-02] VITALS: Ht 160 cm; Wt 62.1 kg
--- NOTE | 2019-11-02 22:41 | NUR ---
ASSUMED CARE OF PATIENT. PATIENT REPORTS SHE RECENTLY HAD A DIALYSIS CATHETER PLACED IN HER RIGHT CHEST. SINCE THEN SHE HAS HAD SOB, AND RIGHT ARM PAIN. VS STABLE. CALL LIGHT IN PLACE. WILL CONTINUE TO MONITOR.
[2019-11-02 23:16] LABS: BASOPHILS # (AUTO) 0.21 x10^3/uL (0-0.1); BASOPHILS % (AUTO) 2 % (0-1); EOSINOPHILS # (AUTO) 0.52 x10^3/uL (0-0.4); EOSINOPHILS % (AUTO) 6 % (1-7); LYMPHOCYTES # (AUTO) 1.96 x10^3/uL (1-3.4); LYMPHOCYTES % (AUTO) 22 % (22-44); MD NO; MEAN CORPUSCULAR HEMOGLOBIN 32.4 pg (27.0-34.8); MEAN CORPUSCULAR HGB CONC 32.6 g/dL (32.4-35.8); MEAN CORPUSCULAR VOLUME 99.4 fL (80-100); MEAN PLATELET VOLUME 7.5 fL (7.4-10.4); MONOCYTES # (AUTO) 0.57 x10^3/uL (0.2-0.8); MONOCYTES % (AUTO) 7 % (2-9); NEUTROPHILS # (AUTO) 5.58 x10^3/uL (1.8-6.8); NEUTROPHILS % (AUTO) 63 % (42-75); PLATELET COUNT 251 x10^3/uL (130-400); RED BLOOD COUNT 3.28 x10^6/uL (3.82-5.3); RED CELL DISTRIBUTION WIDTH 16.6 % (9.6-15.2)
[2019-11-02 23:28] LABS: ALBUMIN 3.1 g/dL (3.4-5.0); ANION GAP 9 mmol/L (5-15); CALCIUM 8.7 mg/dL (8.5-10.1); CHLORIDE 100 mmol/L (98-107)
--- NOTE | 2019-11-02 23:37 | NUR ---
PT IN US
[2019-11-03 00:42] VITALS: BP 113/75
--- NOTE | 2019-11-03 00:42 | NUR ---
PT DISCHARGED PER DR GREY
== END 2019-11-03 00:47 | disposition home or self-care (01) ==
LOC: ED 22:14
DX: R07.89 Other chest pain (principal); I12.0 Hypertensive chronic kidney disease with stage 5 chronic kidney disease or end stage renal disease; N18.6 End stage renal disease; M79.601 Pain in right arm; Z90.89 Acquired absence of other organs
CPT/HCPCS: 36415; 71045; 80048; 82040; 85025; 93005; 99285

== ENCOUNTER → 2020-07-05 | Outpatient (CLI) | payer BC ==
[~2020-07-05] MED LIST changes: +AMLO-211 PO; -AMLO10TA8 PO
== END | disposition home or self-care (01) ==
LOC: CVU 14:17
PROVIDERS: ATTEND Nurse Practitioner Gerontology
DX: I08.8 Other rheumatic multiple valve diseases (principal); I12.0 Hypertensive chronic kidney disease with stage 5 chronic kidney disease or end stage renal disease; N18.6 End stage renal disease; R10.9 Unspecified abdominal pain; M54.9 Dorsalgia, unspecified; D63.1 Anemia in chronic kidney disease; N25.81 Secondary hyperparathyroidism of renal origin; Z87.448 Personal history of other diseases of urinary system; Z99.2 Dependence on renal dialysis
CPT/HCPCS: 93306; 93356

== ENCOUNTER → 2020-10-25 | Outpatient (CLI) | payer BC ==
[~2020-10-25] MED LIST changes: -FOLI-17 PO; +FOLI1TAB32 PO; +HYDR-1067 PO; -HYDR-3240 PO
== END | disposition home or self-care (01) ==
LOC: CFH 13:25
PROVIDERS: ATTEND Nurse Practitioner
DX: N26.1 Atrophy of kidney (terminal) (principal); D63.1 Anemia in chronic kidney disease; N25.81 Secondary hyperparathyroidism of renal origin; N18.6 End stage renal disease; Z99.2 Dependence on renal dialysis; Z87.448 Personal history of other diseases of urinary system
CPT/HCPCS: 74176

== ENCOUNTER → 2021-01-19 | Outpatient (CLI) | payer BC ==
[~2021-01-19] MED LIST changes: -HYDR-1067 PO; +HYDR-2214 PO
== END | disposition home or self-care (01) ==
LOC: CFH 09:06
PROVIDERS: ATTEND Nurse Practitioner Gerontology
DX: I12.9 Hypertensive chronic kidney disease with stage 1 through stage 4 chronic kidney disease, or unspecified chronic kidney disease (principal); R10.9 Unspecified abdominal pain; N18.6 End stage renal disease; D63.1 Anemia in chronic kidney disease; N25.81 Secondary hyperparathyroidism of renal origin; M54.9 Dorsalgia, unspecified; Z87.448 Personal history of other diseases of urinary system; Z99.2 Dependence on renal dialysis
CPT/HCPCS: 71046

== ENCOUNTER 2021-02-10 22:22 | Emergency (ER) | payer BC, MEDICARE ==
[~2021-02-10] VITALS: Ht 162.6 cm; Wt 64.5 kg
--- NOTE | 2021-02-10 22:38 | NUR ---
pt present to the ed with low blood pressure after dialysis. pt states her blood pressure goes up and down frequently and she just wants to make sure it's okay. pt in gown, resting on gurney, and placed on continuous monitoring.
[2021-02-10 23:18] VITALS: BP 109/56
--- NOTE | 2021-02-10 23:18 | NUR ---
pt resting on gurney, denies needs at this time.
--- NOTE | 2021-02-10 23:32 | NUR ---
Patient given discharge instructions and they have confirmed that they understand the instructions. Patient ambulatory with steady gait.
== END 2021-02-10 23:34 | disposition home or self-care (01) ==
LOC: ED 23:00
DX: I95.81 Postprocedural hypotension (principal); R42 Dizziness and giddiness; R53.1 Weakness; R51.9 Headache, unspecified; I12.0 Hypertensive chronic kidney disease with stage 5 chronic kidney disease or end stage renal disease; N18.6 End stage renal disease; E11.22 Type 2 diabetes mellitus with diabetic chronic kidney disease
CPT/HCPCS: 99281

== ENCOUNTER 2021-04-01 10:06 | Emergency (ER) | payer BC, MEDICARE ==
--- NOTE | 2021-04-01 10:49 | NUR ---
NO ANSWER FROM TRIAGE
--- NOTE | 2021-04-01 11:06 | NUR ---
NO ANSWER FROM TRIAGE
--- NOTE | 2021-04-01 11:10 | NUR ---
NO ANSWER FROM TRIAGE
== END 2021-04-01 11:16 | disposition left against medical advice (07) ==
LOC: ED 11:10
DX: I95.9 Hypotension, unspecified (principal); Z53.21 Procedure and treatment not carried out due to patient leaving prior to being seen by health care provider

== ENCOUNTER 2021-04-03 15:11 | Emergency (ER) | payer BC, MEDICARE ==
[~2021-04-03] VITALS: Ht 160 cm; Wt 61.0 kg
[2021-04-03 15:32] VITALS: BP 110/72
--- NOTE | 2021-04-03 18:09 | NUR ---
no answer andreas called for room placement at [id number] and [id number]
--- NOTE | 2021-04-03 18:25 | NUR ---
no answer when called for room placement
== END 2021-04-03 18:31 | disposition left against medical advice (07) ==
LOC: ED 16:00
DX: R06.02 Shortness of breath (principal); R03.1 Nonspecific low blood-pressure reading; Z53.1 Procedure and treatment not carried out because of patient's decision for reasons of belief and group pressure
CPT/HCPCS: 93005